=== PATIENT | female | born 1985 | race Caucasian/White ===

== ENCOUNTER 2018-07-26 13:24 | Emergency (ER) | payer OTHER ==
[~2018-07-26] VITALS: Ht 175.3 cm; Wt 93.0 kg
[2018-07-26] MEDS ORDERED: LEVAQUIN750 MG (14:02)
== END 2018-07-26 18:10 | disposition home or self-care (01) ==
LOC: ER 13:24
DX: R53.81 Other malaise (principal); R06.02 Shortness of breath; F06.4 Anxiety disorder due to known physiological condition